=== PATIENT | female | born 1955 | race Caucasian/White ===

== ENCOUNTER → 2017-04-22 | Outpatient (CLI) | payer BC, OTHER ==
[2014-12-24 19:25] VITALS: BP 134/77
[~2017-04-22] MED LIST: ALEVE220 MG PO; BENADRYL25 MG PO; BETAMETHASONE D30 ML; COUMADIN5 MG PO; ENOXAPARIN120 MG/0.1 SQ; FLONASE0.05 MG/AC NS; GABAPENTIN100 M1 PO; GELNIQUE100 MG/GM TD; HUMALOG PEN100 U/ML SQ; HUMALOG100 U/ML SC; KLONOPIN0.5 MG PO; LAMISIL250 MG PO; LANTUS SOLOS100 U/M1 SC; LASIX20 MG PO; LIPITOR 40MG TA40 MG PO; LISINOPRIL20 MG PO; OMEGA-3 FISH1000 MG PO; PERCOCET 325 MG1 TAB PO; PRAVACHOL 20MG20 MG PO; PREDNISONE10 M1; PROTONIX 40MG T40 MG PO; PROVENTIL0.09 MG/Ac IH; ROBAXIN-750750 MG PO; SEA OMEGA 301 SGL PO; SINGULAIR10 MG PO; SYMBICORT1 AE3 IH; SYMBICORT1 AE5; ULTRAM 50MG TAB50 MG PO; XARELTO15 MG PO; ZANTAC 15OMG150 MG PO; ZOFRAN ODT8 MG PO; ZYRTEC10 MG PO
== END ==
LOC: RAD 10:45 → MAMMO 10:51 → RAD 10:51
DX: Z12.31 Encounter for screening mammogram for malignant neoplasm of breast (principal); R92.8 Other abnormal and inconclusive findings on diagnostic imaging of breast
CPT/HCPCS: G0202

== ENCOUNTER → 2017-06-04 | Outpatient (CLI) | payer BC, OTHER ==
[2014-12-24 19:25] VITALS: BP 134/77
== END ==
LOC: RAD 10:30
DX: N63.12 Unspecified lump in the right breast, upper inner quadrant (principal)

== ENCOUNTER → 2018-09-01 | Outpatient (CLI) | payer BC, OTHER ==
[2014-12-24 19:25] VITALS: BP 134/77
[2018-09-01 10:58] LABS: HEMATOCRIT 43.1 % (37.0-47.0); HEMOGLOBIN 13.3 g/dL (12.5-16.0); MEAN PLATELET VOLUME 11.3 fl (7.4-10.4); RED BLOOD COUNT 5.09 M/mm3 (4.10-5.30); RED CELL DISTRIBUTION WIDTH 14.6 % (11.5-14.5)
[2018-09-01 11:15] LABS: ALBUMIN 4.3 g/dL (3.5-5.0); CALCIUM 9.1 mg/dL (8.4-10.2); POTASSIUM 4.3 mmol/L (3.6-5.0); TOTAL BILIRUBIN 0.7 mg/dL (0.2-1.3); TOTAL PROTEIN 7.1 g/dL (6.3-8.2)
[2018-09-02 07:27] LABS: C-REACTIVE PROTEIN XXX
[2018-09-03 12:29] LABS: LIPOPROTEIN A 11 mg/dL (<=30)
== END ==
LOC: LAB 10:34
DX: E55.9 Vitamin D deficiency, unspecified (principal); E78.00 Pure hypercholesterolemia, unspecified; E03.9 Hypothyroidism, unspecified; E11.9 Type 2 diabetes mellitus without complications

== ENCOUNTER → 2018-09-30 | Outpatient (CLI) | payer BC, OTHER ==
[2014-12-24 19:25] VITALS: BP 134/77
== END ==
LOC: RAD 15:56
DX: K80.20 Calculus of gallbladder without cholecystitis without obstruction (principal); R11.0 Nausea

== ENCOUNTER 2018-11-06 02:37 | Emergency (ER) | payer BC, OTHER ==
[~2018-11-06] VITALS: Ht 167.6 cm; Wt 100.0 kg
[2018-11-06] MEDS ORDERED: ACETAMINOPHEN-H1 TA2 PO (03:11)
[2018-11-06] MEDS ORDERED: HUMALOG KWIKPEN SQ (03:12)
[2018-11-06] MEDS ORDERED: ZESTRIL20 M1 PO (03:12)
[2018-11-06] MEDS ORDERED: GLUCOPHAGE PO (03:12)
[2018-11-06] MEDS ORDERED: BASAGLAR K100 UNIT/1 SQ (03:12)
[2018-11-06] MEDS ORDERED: FLUTICASON0.05 MG/AC NS (03:13)
[2018-11-06] MEDS ORDERED: NEURONTIN300 MG/CAP PO (03:13)
[2018-11-06] MEDS ORDERED: [UNRECOGNIZED DRUG - OTHER] PO (03:13)
[2018-11-06] MEDS ORDERED: EZETIMIBE10 M1 PO (03:13)
[2018-11-06 03:50] LABS: EOS # 0.3 (0.04-0.40); EOS % 2.4 % (1.0-5.0); HEMATOCRIT 41.5 % (37.0-47.0); LYMPH# 2.5 (1.50-4.00); MEAN CELL VOLUME 84 fl (78-100); MEAN CORPUSCULAR HEMOGLOBIN 26 pg (27-31); MEAN CORPUSCULAR HGB CONC 31 g/dL (33-37); MEAN PLATELET VOLUME 11.4 fl (7.4-10.4); MONO # 1.1 (0.20-0.80); NEU # 8.9 (1.40-6.50); PLATELET COUNT 327 K/mm3 (130-400); RED BLOOD COUNT 4.93 M/mm3 (4.10-5.30); RED CELL DISTRIBUTION WIDTH 14.4 % (11.5-14.5); WHITE BLOOD COUNT 12.8 K/mm3 (4.8-10.8)
[2018-11-06 04:01] LABS: URINE APPEARANCE CLEAR; URINE BILIRUBIN NEGATIVE (NEGATIVE); URINE BLOOD NEGATIVE (NEGATIVE); URINE COLOR YELLOW; URINE GLUCOSE NEGATIVE (NEGATIVE); URINE KETONE NEGATIVE (NEGATIVE); URINE LEUKOCYTE ESTERASE NEGATIVE (NEGATIVE); URINE NITRATE NEGATIVE (NEGATIVE); URINE PROTEIN(semi-quant) NEGATIVE (NEGATIVE); URINE UROBILINOGEN NORMAL (NORMAL); URINE WBC 0-1 /hpf (0-3)
[2018-11-06 04:03] LABS: ALBUMIN 3.9 g/dL (3.4-4.8)
[2018-11-06 04:04] LABS: POTASSIUM 4.1 mmol/L (3.5-5.1)
[2018-11-06 04:05] LABS: CALCIUM 9.1 mg/dL (8.3-10.5)
[2018-11-06 04:06] LABS: TOTAL PROTEIN 7.1 g/dL (6.2-8.1)
[2018-11-06 04:08] LABS: TOTAL BILIRUBIN 0.4 mg/dL (0.2-1.2)
[2018-11-06 05:20] VITALS: BP 147/78
[2018-11-06] MEDS ORDERED: KETOROLAC10 MG PO (05:21)
== END 2018-11-06 05:27 | disposition home or self-care (01) ==
LOC: ED 02:37
PROVIDERS: Family Medicine
DX: G89.18 Other acute postprocedural pain (principal); F41.9 Anxiety disorder, unspecified; R10.9 Unspecified abdominal pain; E11.9 Type 2 diabetes mellitus without complications; Z98.1 Arthrodesis status; Z90.49 Acquired absence of other specified parts of digestive tract
CPT/HCPCS: J1885

== ENCOUNTER → 2019-03-08 | Outpatient (CLI) | payer BC, OTHER ==
[~2019-03-08] MED LIST changes: +ACETAMINOPHEN-H1 TA2 PO; +BASAGLAR K100 UNIT/1 SQ; +EZETIMIBE10 M1 PO; +FLUTICASON0.05 MG/AC NS; +GLUCOPHAGE PO; +HUMALOG KWIKPEN SQ; +KETOROLAC10 MG PO; +NEURONTIN300 MG/CAP PO; +ZESTRIL20 M1 PO; +[UNRECOGNIZED DRUG - OTHER] PO
== END ==
LOC: MAMMO 13:45
DX: Z12.31 Encounter for screening mammogram for malignant neoplasm of breast (principal)

== ENCOUNTER → 2020-10-16 | Outpatient (CLI) | payer BC, OTHER | LOC: RAD 13:06 | DX: M79.605 Pain in left leg (principal) ==

== ENCOUNTER → 2020-12-21 | Outpatient (CLI) | payer BC, OTHER | LOC: RAD 14:00 | DX: E05.00 Thyrotoxicosis with diffuse goiter without thyrotoxic crisis or storm (principal) ==

== ENCOUNTER → 2021-03-13 | Outpatient (CLI) | payer BC, OTHER | LOC: LAB 16:01 | DX: L30.9 Dermatitis, unspecified (principal) ==

== ENCOUNTER → 2021-06-26 | Outpatient (CLI) | payer BC, OTHER | LOC: RAD 06-12 09:28 | DX: M43.16 Spondylolisthesis, lumbar region (principal); Z98.1 Arthrodesis status ==

== ENCOUNTER 2021-07-31 14:01 | Outpatient (RCR) | payer BC, OTHER | END 2021-08-08 | disposition still patient (30) | LOC: PT | DX: M51.37 Other intervertebral disc degeneration, lumbosacral region (principal) ==

== ENCOUNTER 2021-08-13 14:37 | Outpatient (RCR) | payer BC, OTHER | END 2021-09-07 | disposition still patient (30) | LOC: PT | DX: M51.37 Other intervertebral disc degeneration, lumbosacral region (principal) ==

== ENCOUNTER 2021-12-04 13:04 | Outpatient (RCR) | payer BC, OTHER | END 2021-12-08 | disposition home or self-care (01) | LOC: PT | DX: M70.62 Trochanteric bursitis, left hip (principal); M54.16 Radiculopathy, lumbar region ==

== ENCOUNTER 2021-12-10 07:58 | Outpatient (RCR) | payer BC, OTHER | END 2022-01-08 | disposition home or self-care (01) | LOC: PT | DX: M70.62 Trochanteric bursitis, left hip (principal); M54.16 Radiculopathy, lumbar region ==

== ENCOUNTER → 2021-12-23 | Outpatient (CLI) | payer BC, OTHER | LOC: MAMMO 11:37 | DX: Z12.31 Encounter for screening mammogram for malignant neoplasm of breast (principal) ==

== ENCOUNTER → 2022-01-08 | Outpatient (RCR) | payer BC, OTHER | LOC: OT | DX: M79.641 Pain in right hand (principal); M79.642 Pain in left hand ==

== ENCOUNTER → 2022-02-03 | Outpatient (CLI) | payer BC, OTHER | LOC: RAD 15:18 | DX: R06.00 Dyspnea, unspecified (principal) ==

== ENCOUNTER → 2022-06-03 | Outpatient (CLI) | payer BC, OTHER, MEDICARE | LOC: RAD 13:58 | DX: I50.20 Unspecified systolic (congestive) heart failure (principal) ==

== ENCOUNTER → 2023-01-16 | Outpatient (CLI) | payer MEDICARE, BC, OTHER | LOC: RAD 15:55 | DX: M79.662 Pain in left lower leg (principal); M79.89 Other specified soft tissue disorders; R23.8 Other skin changes ==

== ENCOUNTER → 2024-01-20 | Outpatient (CLI) | payer MEDICARE, BC, OTHER | LOC: RAD 11:00 | DX: M79.89 Other specified soft tissue disorders (principal) ==

== ENCOUNTER → 2024-02-02 | Outpatient (CLI) | payer MEDICARE, BC, OTHER ==
[~2024-02-02] MED LIST changes: +Gadoterate 20 ML VIAL IV ONE
== END ==
LOC: RAD 12:59
DX: M79.89 Other specified soft tissue disorders (principal); M25.551 Pain in right hip
CPT/HCPCS: A9575